=== PATIENT | female | born 2000 | race Caucasian/White ===

== ENCOUNTER 2019-05-16 11:58 | Emergency (ER) | payer BC ==
[2019-05-16] MEDS ORDERED: Ondansetron ODT TAB* 4 MG PO ONE (13:20)
--- NOTE | 2019-05-16 13:23 | ED ---
Head Injury - HPI Summary HPI Summary: 18-year-old female presents with head injury on Thursday. States she was hit in the head by a frisbee. States afterwards she felt very dizzy and was unable to finish playing. States she's had a headache since then. Has had nausea but no vomiting. not on blood thinners. Has no medical conditions. She does have a history of migraines. States has had difficulty concentrating. No amnesia about the event. States that she's had difficulty recalling facts today when people tell her something. Has had a concussion in the past. States lights are bothering him. States she did have some tinnitus that resolved. She was unable to complete her school work today. - History Of Current Complaint Chief Complaint: EDHeadInjury Stated Complaint: SENT FROM [facility] HEAD INJ PER PATIENT Time Seen by Provider: 05/16/19 12:47 Pain Intensity: 6 - Allergies/Home Medications Allergies/Adverse Reactions: Allergies Allergy/AdvReac Type Severity Reaction Status Date / Time No Known Allergies Allergy Verified 05/16/19 12:05 PMH/Surg Hx/FS Hx/Imm Hx Endocrine/Hematology History: Denies: Hx Anticoagulant Therapy Respiratory History: Denies: Hx Asthma Infectious Disease History: No Infectious Disease History: Denies: Traveled Outside the [place] in Last 30 Days - Family History Known Family History: Positive: Non-Contributory - Social History Alcohol Use: Rare Substance Use Type: Reports: None Smoking Status (MU): Never Smoked Tobacco Review of Systems Negative: Fever Negative: Chest Pain Negative: Shortness Of Breath Positive: Nausea. Negative: Vomiting Positive: Headache All Other Systems Reviewed And Are Negative: Yes Physical Exam Triage Information Reviewed: Yes Vital Signs On Initial Exam: Initial Vitals Temp Pulse Resp BP Pulse Ox 97.9 F 79 18 134/97 99 05/16/19 12:02 05/16/19 12:02 05/16/19 12:02 05/16/19 12:02 05/16/19 12:02 Vital Signs Reviewed: Yes Appearance: Positive: Well-Appearing Skin: Positive: Warm, Dry Head/Face: Positive: Normal Head/Face Inspection Eyes: Positive: Normal, EOMI, JAMES, Conjunctiva Clear ENT: Positive: Normal ENT inspection, Pharynx normal, TMs normal Neck: Positive: Other: - nontender neck Respiratory/Lung Sounds: Positive: Clear to Auscultation, Breath Sounds Present Cardiovascular: Positive: Normal, RRR Abdomen Description: Positive: Nontender, Soft Bowel Sounds: Positive: Present Musculoskeletal: Positive: Normal Neurological: Positive: Sensory/Motor Intact, Alert, Oriented to Person Place, Time, CN Intact II-III, Finger to Nose Psychiatric: Positive: Normal - Tayler Coma Scale Best Eye Response: 4 - Spontaneous Best Motor Response: 6 - Obeys Commands Best Verbal Response: 5 - Oriented Coma Scale Total: 15 Diagnostics - Vital Signs Vital Signs Temp Pulse Resp BP Pulse Ox 05/16/19 12:02 97.9 F 79 18 134/97 99 - Laboratory Lab Statement: Any lab studies that have been ordered have been reviewed, and results considered in the medical decision making process. Head Injury Course/Dx Course Of Treatment: 18-year-old female presents with head injury on Thursday. States she was hit in the head by a frisbee. States afterwards she felt very dizzy and was unable to finish playing. States she's had a headache since then. Has had nausea but no vomiting. not on blood thinners. Has no medical conditions. She does have a history of migraines. States has had difficulty concentrating. No amnesia about the event. States that she's had difficulty recalling facts today when people tell her something. Has had a concussion in the past. States lights are bothering him. States she did have some tinnitus that resolved. She was unable to complete her school work today. On exam has a normal neuro exam. According to [place] [facility] rules does not need head imaging. Gave her concussion precautions. Told to follow-up with [facility]. will pull from school for next couple days. Patient understands and agrees with plan. - Diagnoses Differential Diagnosis/HQI/PQRI: Concussion Without LOC, Contusion, Intracranial Bleed Provider Diagnoses: Head injury Discharge ED - Sign-Out/Discharge Documenting (check all that apply): Patient Departure Patient Received Moderate/Deep Sedation with Procedure: No - Discharge Plan Condition: Good Disposition: HOME Prescriptions: Ondansetron ODT TAB* [Zofran 4 MG Odt TAB*] 4 mg PO Q6H PRN #16 tab.odt PRN Reason: Nausea Patient Education Materials: Concussion (ED) Forms: *School Release [facility] [Z.BUSINESS, APPLICATION, OTHER] - Additional Instructions: Take Tylenol or ibuprofen for headache every 6 hours Take Zofran every 6 hours as needed for nausea Modify activities as tolerated Follow up with [facility] within 3 days Return to ED if develop vomiting, severe headache, or any new or worsening symptoms - Billing Disposition and Condition Condition: GOOD Disposition: Home
[2019-05-16 13:48] VITALS: BP 116/83
== END 2019-05-16 13:41 | disposition home or self-care (01) ==
LOC: ED 11:58
DX: S09.90XA Unspecified injury of head, initial encounter (principal); W20.8XXA Other cause of strike by thrown, projected or falling object, initial encounter; Y92.9 Unspecified place or not applicable
CPT/HCPCS: 99281

== ENCOUNTER 2019-05-17 20:49 | Emergency (ER) | payer BC ==
--- NOTE | 2019-05-17 23:46 | ED ---
Head Injury - HPI Summary HPI Summary: This pt is a 18 Y/O F presenting to [facility] with a CC of a concussion that she had on Thursday05/15/19 after being hit in the back of a head by a Frisbee which is still rated a 7/10 in severity. She stated that she started to have a ringing in her ear with nausea, vomiting, and a headache that has been persistent. She states that her symptoms have been worsening since the onset. She states that she is experiencing memory issues and has had visual changes. She states that her spine has been in pain from the base of her sacrum to the base of her skull. She states that she also has tingling and numbness in her feet. She denies any inability to ambulate or a decreased appetite. She has no aggravating or alleviating factors. She states that she has a PMHx of scoliosis. - History Of Current Complaint Chief Complaint: EDBackInjuryPain Stated Complaint: BACK PAIN PER PT Time Seen by Provider: 05/17/19 23:09 Hx Obtained From: Patient Mechanism Of Injury: Blunt Trauma - frisbee hit the back of her head Onset/Duration: Started Days Ago - 4, Still Present Onset of Pain: Immediate Severity Currently: Moderate Severity Initially: Moderate Pain Intensity: 7 Pain Scale Used: 0-10 Numeric Location of Head Injury: Occipital Aggravating Factor(s): Other: - nothing Alleviating Factor(s): Other: - nothing Associated Signs And Symptoms: Memory Loss, Nausea, Vomiting, Numbness - LE, Headache, Visual Changes, Other: - spinal pain - Allergies/Home Medications Allergies/Adverse Reactions: Allergies Allergy/AdvReac Type Severity Reaction Status Date / Time No Known Allergies Allergy Verified 05/16/19 12:05 PMH/Surg Hx/FS Hx/Imm Hx Previously Healthy: Yes Endocrine/Hematology History: Denies: Hx Anticoagulant Therapy Cardiovascular History: Denies: Hx Hypertension Respiratory History: Reports: Hx Asthma Musculoskeletal History: Reports: Hx Scoliosis - Surgical History Surgical History: Yes Surgery Procedure, Year, and Place: tonsilectomy - Immunization History Immunizations Up to Date: Yes Infectious Disease History: No Infectious Disease History: Denies: Traveled Outside the [place] in Last 30 Days - Family History Known Family History: Positive: Respiratory Disease - Asthma - Social History Occupation: Student - [employer] Lives: Dormitory/Roommates Alcohol Use: Rare Hx Substance Use: No Substance Use Type: Reports: None Hx Tobacco Use: No Smoking Status (MU): Never Smoked Tobacco Household Exposure: No Review of Systems ENT: Other - visual changes Positive: Vomiting, Nausea Positive: Other - spinal pain Neurological: Other - can abulate fine Positive: Headache, Numbness - in LE All Other Systems Reviewed And Are Negative: Yes Physical Exam - Summary Physical Exam Summary: Constitutional: Well-developed, Well-nourished, Alert. (-) Distressed Skin: Warm, Dry HENT: Normocephalic; Atraumatic Eyes: Conjunctiva normal Neck: Musculoskeletal ROM normal neck. (-) JVD, (-) Stridor, (-) Nuchal rigidity Cardio: Rhythm regular, rate normal, Heart sounds normal; Intact distal pulses; Radial pulses are 2+ and symmetric. (-) Murmur Pulmonary/Chest wall: Effort normal. (-) Respiratory distress, (-) Wheezes, (-) Rales Abd: Soft, (-) tenderness, (-) Distension, (-) Guarding, (-) Rebound Musculoskeletal: (-) Edema Lymph: (-) Cervical adenopathy Neuro: Alert, Oriented x3 Psych: Mood and affect Normal Triage Information Reviewed: Yes Vital Signs On Initial Exam: Initial Vitals Temp Pulse Resp BP Pulse Ox 98.3 F 71 18 124/83 97 05/17/19 20:51 05/17/19 20:51 05/17/19 20:51 05/17/19 20:51 05/17/19 20:51 Vital Signs Reviewed: Yes Procedures - Sedation Patient Received Moderate/Deep Sedation with Procedure: No Diagnostics - Vital Signs Vital Signs Temp Pulse Resp BP Pulse Ox 05/17/19 20:51 98.3 F 71 18 124/83 97 - Laboratory Lab Statement: Any lab studies that have been ordered have been reviewed, and results considered in the medical decision making process. - CT Brain CT CT Interpretation Completed By: Radiologist Summary of CT Findings: No evidence for traumatic diseases. ED physician has reviewed this report. Head Injury Course/Dx Course Of Treatment: This pt is a 18 Y/O F presenting to [facility] with a CC of a concussion that she had on Thursday05/15/19 after being hit in the back of a head by a Frisbee. She stated that she started to have a ringing in her ear with nausea, vomiting, and a headache that has been persistent. She states that her symptoms have been worsening since the onset. She states that she is experiencing memory issues and has had visual changes. Her brain CT shows no acute processes. She sima be dischrged with concussive syndromes. - Diagnoses Provider Diagnoses: Concussion syndrome Discharge ED - Sign-Out/Discharge Documenting (check all that apply): Patient Departure Patient Received Moderate/Deep Sedation with Procedure: No - Discharge Plan Condition: Stable Disposition: HOME Patient Education Materials: Concussion (ED) Referrals: [facility] [Outside] - Billing Disposition and Condition Condition: STABLE Disposition: Home - Attestation Statements Document Initiated by Scribe: Yes Documenting Scribe: Jose Sunshine Provider For Whom Levar is Documenting (Include Credential): Ji Paige MD Scribe Attestation: Jose Alejandra, scribed for Ji Paige MD on 05/31/19 at 1853. Scribe Documentation Reviewed: Yes Provider Attestation: The documentation as recorded by the Jose cisse accurately reflects the service I personally performed and the decisions made by Ji riley MD Status of Scribe Document: Viewed
[2019-05-17] MEDS ORDERED: HYDROcodone/ACETAMIN 5-325 MG* 1 TAB PO ONE (23:53)
[2019-05-17] MEDS ORDERED: Acetaminophen TAB* 325 MG PO ONE (23:53)
[2019-05-18 01:51] VITALS: BP 116/70
== END 2019-05-18 01:50 | disposition home or self-care (01) ==
LOC: ED 20:49
DX: F07.81 Postconcussional syndrome (principal); M54.9 Dorsalgia, unspecified; R11.2 Nausea with vomiting, unspecified; M41.9 Scoliosis, unspecified
CPT/HCPCS: 70450; 99282; A9270-GY

== ENCOUNTER 2019-10-12 10:13 | Emergency (ER) | payer BC ==
--- NOTE | 2019-10-12 10:27 | ED ---
Allergic Reaction/Systemic - HPI Summary HPI Summary: 19 year old F brought in by EMS from [facility] to [facility] complains of allergic reaction after receiving allergy therapy injection minutes prior to arrival. Hx allergies. Patient states she has been receiving allergy therapy injections since March 2019. She states that she started new vile of injection today 10/12/2019 after which she developed posterior neck itchiness. Twenty minutes later, she told the nurse at [facility] that she felt itchy and warm, and had redness and blotches on her neck. Patient was given Benadryl and epi x1 IM at [facility] after which her symptoms improved. Patient states she doesn't normally carry epi and has never had epi before today. VSS en route per EMS. Patient states she is currently feeling drowsy and has a dry mouth. She states her neck is no longer itchy and that she is feeling cold. No difficulty speaking, shortness of breath, vomiting, abdominal pain. Medications reviewed. Allergies noted. Hx asthma. Hx seasonal allergies. - History of Current Complaint Hx Obtained From: Patient, EMS Onset/Duration: Started minutes ago, Still Present Timing: Constant Severity Currently: None Pain Intensity: 0 Pain Scale Used: 0-10 Numeric Associated Signs And Symptoms: Positive: Negative - difficulty speaking, shortness of breath, vomiting, abdominal pain, Other: - drowsiness, dry mouth, chills - Allergies/Home Medications Allergies/Adverse Reactions: Allergies Allergy/AdvReac Type Severity Reaction Status Date / Time birch Allergy Unknown Verified 10/12/19 10:21 Reaction Details cat dander Allergy Itching Verified 10/12/19 10:21 gluten Allergy Pain Verified 10/12/19 10:21 grass pollen Allergy Rash And Verified 10/12/19 10:21 Itching lactose Allergy GI Upset Verified 10/12/19 10:21 willow Allergy Unknown Verified 10/12/19 10:21 Reaction Details Home Medications: Home Medications Fluticasone/Vilanterol MDI(NF) [Breo Ellipta MDI 200/25(NF)] 1 puff INH DAILY [History Confirmed 10/12/19] Montelukast Sodium TAB* [Singulair TAB*] 10 mg PO BEDTIME 10/12/19 [History Confirmed 10/12/19] Norethindr/Eth Estradiol(Nf) [Lo Loestrin Fe (NF)] 1 tab PO DAILY 10/12/19 [ History Confirmed 10/12/19] PMH/Surg Hx/FS Hx/Imm Hx Cardiovascular History: Denies: Hx Hypertension Respiratory History: Reports: Hx Asthma, Hx Seasonal Allergies Musculoskeletal History: Reports: Hx Scoliosis Sensory History: Reports: Hx Contacts or Glasses Opthamlomology History: Reports: Hx Contacts or Glasses - Surgical History Surgery Procedure, Year, and Place: tonsilectomy - Family History Known Family History: Positive: Respiratory Disease - Asthma - Social History Alcohol Use: Rare Hx Substance Use: No Substance Use Type: Reports: None Hx Tobacco Use: No Smoking Status (MU): Never Smoked Tobacco Review of Systems Positive: Chills, Other - drowsiness ENT: Negative - difficulty speaking Positive: Other - dry mouth Negative: Shortness Of Breath Negative: Abdominal Pain, Vomiting All Other Systems Reviewed And Are Negative: Yes Physical Exam - Summary Physical Exam Summary: Constitutional: Well-developed, Well-nourished, Alert. (-) Distressed Skin: Warm, Dry; no rash HENT: Normocephalic; Atraumatic; no angioedema Eyes: Conjunctiva normal Neck: Musculoskeletal ROM normal neck. (-) JVD, (-) Stridor, (-) Tracheal deviation Cardio: Rhythm regular, rate normal, Heart sounds normal; Intact distal pulses; The pedal pulses are 2+ and symmetric. Radial pulses are 2+ and symmetric. (-) Murmur Pulmonary/Chest wall: Effort normal. (-) Respiratory distress, (-) Wheezes, (-) Rales Abd: Soft, (-) tenderness, (-) Distension, (-) Guarding, (-) Rebound Musculoskeletal: (-) Edema Lymph: (-) Cervical adenopathy Neuro: Alert, Oriented x3 Psych: Mood and affect Normal Triage Information Reviewed: Yes Vital Signs Reviewed: Yes Procedures - Sedation Patient Received Moderate/Deep Sedation with Procedure: No Re-Evaluation - Re-Evaluation First Eval Re-Evaluation Time: 12:33 Change: Improved Comment: patient agrees to discharge Allergic Reaction Course/Dx - Course Course Of Treatment: 19 y/o F brought in by EMS from [facility] with hx allergies complains of allergic reaction after receiving allergy therapy injection minutes prior to arrival. Patient has been receiving allergy therapy injections since March 2019 and was started on new injection today 10/12 after which she developed posterior neck itchiness, felt warm, and had redness and blotches on her neck. She received Benadryl and epi x1 IM at [facility]. VSS en route per EMS. Patient states she is currently feeling drowsy, has a dry mouth and chills. No difficulty speaking, shortness of breath , vomiting, abdominal pain. Physical exam unremarkable. She has no angioedema, no wheezing, no rash. Patient was observed in the ED without any complaints. Patient will be discharged home with prescription for prednisone and follow up from [facility] in 3 days. Patient was instructed to return to Emergency Department for new or worsening symptoms. Patient understands and is agreeable to this plan. - Diagnoses Provider Diagnoses: Allergic reaction Discharge ED - Sign-Out/Discharge Documenting (check all that apply): Patient Departure - Discharge Plan Condition: Stable Disposition: HOME Prescriptions: predniSONE 20 mg TAB [Deltasone 20 MG TAB*] 40 mg PO DAILY 4 Days #8 tab Patient Education Materials: General Allergic Reaction (ED) Referrals: [facility] [Outside] - 3 Days Additional Instructions: Follow up with [facility] in 3 days. Return to the Emergency Department for new or worsening symptoms. - Attestation Statements Document Initiated by Scribe: Yes Documenting Scribe: Rosario Baker Provider For Whom Scribe is Documenting (Include Credential): Rajeev Naik DO Scribe Attestation: Rosario Alejandra, scribed for Rajeev Naik DO on 10/12/19 at 1238. Status of Scribe Document: Ready
[2019-10-12 12:54] VITALS: BP 123/68
== END 2019-10-12 12:54 | disposition home or self-care (01) ==
LOC: ED 10:13
DX: L29.9 Pruritus, unspecified (principal); T50.995A Adverse effect of other drugs, medicaments and biological substances, initial encounter; Z91.011 Allergy to milk products; Z91.018 Allergy to other foods; Z91.048 Other nonmedicinal substance allergy status; Y92.9 Unspecified place or not applicable
CPT/HCPCS: 99283; J7512